=== PATIENT | male | born 1995 | race Caucasian/White ===

== ENCOUNTER 2016-03-16 20:32 | Emergency (ER) | payer BC ==
[~2016-03-16] VITALS: Ht 170.2 cm; Wt 63.0 kg
[~2016-03-16 20:32] MED LIST: NO HOME MEDICATIONS
[2016-03-16 20:36] VITALS: BP 146/80; TEMP 98.6
[2016-03-16 21:08] VITALS: PULSE 83
== END 2016-03-16 21:16 | disposition home or self-care (01) ==
LOC: COL.ER 20:32
DX: S01.01XA Laceration without foreign body of scalp, initial encounter (principal); W22.8XXA Striking against or struck by other objects, initial encounter; Y92.414 Local residential or business street as the place of occurrence of the external cause